=== PATIENT | female | born 1945 | race Two or more races ===

== ENCOUNTER 2018-09-27 05:30 | Day surgery (SDC) | payer OTHER ==
[~2018-09-27 05:30] MED LIST: ECOTRIN325 M1 PO; SINGULAIR10 MG PO; VASOTEC2.5 MG PO; ZOCOR5 MG PO
== END 2018-09-27 13:20 | disposition home or self-care (01) ==
LOC: CIR.AMB 05:30
DX: H90.72 Mixed conductive and sensorineural hearing loss, unilateral, left ear, with unrestricted hearing on the contralateral side (principal)
CPT/HCPCS: 69714; L8614